=== PATIENT | female | born 1990 | race Caucasian/White ===

== ENCOUNTER 2020-12-23 15:33 | Inpatient (IN) | payer OTHER ==
[~2020-12-23] VITALS: Ht 185.4 cm; Wt 118.4 kg
[2020-12-23 16:56] LABS: HCT 34.5 % (37.0-47.0); HGB 11.4 g/dl (12.5-16.0); MCH 27.3 pg (25.0-31.0); MCV 82.7 fL (78.0-100.0); MPV 10.1 fL (6.0-9.5); RBC 4.17 M/uL (4.20-5.40); RDW 15.6 % (11.5-14.0); WBC 14.4 K/uL (4.0-10.5)
[2020-12-23 16:57] LABS: BILIRUBIN NEGATIVE (NEGATIVE); BLOOD 1+ Ery/uL (NEGATIVE); CLARITY CLEAR (CLEAR); COLOR YELLOW (YELLOW); GLUCOSE (U) NORMAL (NORMAL); LEUKOCYTES NEGATIVE Leu/uL (NEGATIVE); NITRITE NEGATIVE (NEGATIVE); PROTEIN NEGATIVE (NEGATIVE); UROBILINOGEN 0.2 mg/dL (0.2-1.0)
[2020-12-23 17:05] LABS: BACTERIA 1+; URINARY RBC RARE; URINARY WBC RARE
[2020-12-23 17:14] LABS: ALBUMIN 2.9 g/dL (3.4-5.0); BILIRUBIN - TOTAL 0.3 mg/dL (0.2-1.0); BUN/CREAT RATIO (CALC) 16.1 RATIO; CREATININE 0.56 mg/dL (0.51-0.95); GLOBULIN (CALCULATION) 4.2 g/dL; POTASSIUM 3.8 mmol/L (3.5-5.1); TOTAL PROTEIN 7.1 g/dL (6.4-8.2)
[2020-12-23 17:39] LABS: URINE CREATININE 18.45 mg/dL (29.00-226.00); URINE TOTAL PROTEIN-RANDOM <6.0 mg/dL (<11.9)
[2020-12-27 05:52] LABS: HCT 31.1 % (37.0-47.0); HGB 10.3 g/dl (12.5-16.0); MCHC 33.1 g/dL (32.0-36.0); MCV 81.4 fL (78.0-100.0); MPV 9.9 fL (6.0-9.5); RBC 3.82 M/uL (4.20-5.40); RDW 15.6 % (11.5-14.0); WBC 11.4 K/uL (4.0-10.5)
== END 2020-12-28 10:30 | disposition home or self-care (01) | DRG 787 ==
LOC: FOB 15:33 → FOD 15:33 → FOB 12-24 09:16
PROVIDERS: Obstetrics & Gynecology; ADMIT Obstetrics & Gynecology
PROC: 10907ZC Drainage of Amniotic Fluid, Therapeutic from Products of Conception, Via Natural or Artificial Opening (ICD-10-PCS; 2020-12-26)
PROC: 3E0P7VZ Introduction of Hormone into Female Reproductive, Via Natural or Artificial Opening (ICD-10-PCS; 2020-12-26)
PROC: 0U7C7ZZ Dilation of Cervix, Via Natural or Artificial Opening (ICD-10-PCS; 2020-12-26)
PROC: 3E033VJ Introduction of Other Hormone into Peripheral Vein, Percutaneous Approach (ICD-10-PCS; 2020-12-26)
PROC: 10D00Z1 Extraction of Products of Conception, Low, Open Approach (ICD-10-PCS; principal; 2020-12-26 07:00)
DX: O13.4 Gestational [pregnancy-induced] hypertension without significant proteinuria, complicating childbirth (principal); D62 Acute posthemorrhagic anemia; Z37.0 Single live birth; O61.0 Failed medical induction of labor; O62.1 Secondary uterine inertia; O99.214 Obesity complicating childbirth; O99.824 Streptococcus B carrier state complicating childbirth; O99.02 Anemia complicating childbirth; Z20.822 Contact with and (suspected) exposure to COVID-19; Z88.6 Allergy status to analgesic agent
CPT/HCPCS: 36415; 80053; 81001; 82570; 83615; 84156; 84550; 87088; J0456; J0690; J1200; J1650; J1800; J1885; J2274; J2370; J2405; J3010; J7050; J7120; J7121; U0002